=== PATIENT | female | born 1960 | race African-American/Black ===

== ENCOUNTER 2017-07-17 16:29 | Outpatient (CLI) | payer OTHER | END 2017-07-17 16:30 | disposition home or self-care (01) | LOC: BICRAD 16:29 | PROVIDERS: ATTEND Family Medicine | DX: R05 Cough (principal) | CPT/HCPCS: 71046 ==

== ENCOUNTER 2017-07-26 10:18 | Day surgery (SDC) | payer OTHER ==
[2017-07-26] MEDS ORDERED: diphenhydrAMINE 25 MG CAP PO SCH (12:15)
[2017-07-26] MEDS ORDERED: Acetaminophen 500 MG TAB PO SCH (12:15)
[2017-07-26] MEDS ORDERED: Sodium Chloride 0.9% 40 ML ONE (12:21)
[2017-07-26] MEDS ORDERED: Sodium Chloride 0.9% 50 ML ONE (12:30)
[2017-07-26 16:49] VITALS: BP 100/55; TEMP 98.7
== END 2017-07-26 17:56 | disposition home or self-care (01) ==
LOC: ONC/OP 10:18
PROVIDERS: ATTEND Internal Medicine Hematology & Oncology
PROC: 30233N1 Transfusion of Nonautologous Red Blood Cells into Peripheral Vein, Percutaneous Approach (ICD-10-PCS; principal; 2017-07-26)
DX: D64.9 Anemia, unspecified (principal); D69.6 Thrombocytopenia, unspecified
CPT/HCPCS: 36415; 36430; 71260; 74177; 80053; 82248; 83615; 84100; 84165; 84550; 85014; 85018; 86850; 86900; 86901; A4216; P9016

== ENCOUNTER 2017-07-26 10:28 | Outpatient (CLI) | payer OTHER ==
[2017-07-26] MEDS ORDERED: ISOVUE-370 76%-LOCM 1 ML ONE (15:04)
== END 2017-07-26 10:29 | disposition home or self-care (01) ==
LOC: BICCT 10:28
PROVIDERS: ATTEND Family Medicine
DX: R59.1 Generalized enlarged lymph nodes (principal); R16.1 Splenomegaly, not elsewhere classified
CPT/HCPCS: 71260; 74177

== ENCOUNTER 2017-07-31 09:14 | Day surgery (SDC) | payer OTHER ==
[2017-07-31] MEDS ORDERED: diphenhydrAMINE 25 MG CAP PO SCH (09:45)
[2017-07-31] MEDS ORDERED: Acetaminophen 500 MG TAB PO SCH (09:45)
[2017-07-31] MEDS ORDERED: Sodium Chloride 0.9% 20 ML ONE (10:18)
[2017-07-31 15:31] LABS: Hemoglobin 7.9 g/dL (12.0-16.0)
[2017-07-31 18:52] VITALS: BP 122/69; TEMP 98.1
== END 2017-07-31 19:13 | disposition home or self-care (01) ==
LOC: ONC/OP 09:14
PROVIDERS: ATTEND Internal Medicine Hematology & Oncology
PROC: 30233N1 Transfusion of Nonautologous Red Blood Cells into Peripheral Vein, Percutaneous Approach (ICD-10-PCS; principal; 2017-07-31)
DX: D64.9 Anemia, unspecified (principal); D69.6 Thrombocytopenia, unspecified
CPT/HCPCS: 36415; 36430; 85014; 85018; 86850; 86900; 86901; A4216; P9016

== ENCOUNTER 2017-08-03 09:21 | Day surgery (SDC) | payer OTHER ==
[2017-08-02 14:09] VITALS: BMI 26.9
[2017-08-03] MEDS ORDERED: Fentanyl 100 MCG/2 ML VIAL ONE ×2 (10:56→11:40)
[2017-08-03] MEDS ORDERED: Lidocaine 1% w/Epinephrine 1:200K 30 ML VIAL ONE (11:18)
[2017-08-03] MEDS ORDERED: Bacitracin Zinc Ointment 30 gm TUBE ONE (12:13)
[2017-08-03] MEDS ORDERED: Promethazine HCl 25 MG/ML VIAL ONE (12:48)
[2017-08-03] MEDS ORDERED: Lidocaine 1% PF 5 ML VIAL ONE (13:08)
[2017-08-03] MEDS ORDERED: PHENYLEPHRINE-NS 100 MCG/ML 10 ML SYRINGE ONE (13:08)
[2017-08-03] MEDS ORDERED: Ondansetron HCl/PF 4 MG/2 ML Vial ONE (13:08)
[2017-08-03] MEDS ORDERED: PROPOFOL 200 MG/20 ML VIAL ONE (13:08)
--- NOTE | 2017-08-04 07:22 | EKG ---
Test Reason : PREOP Blood Pressure : / mmHG Vent. Rate : 111 BPM Atrial Rate : 111 BPM P-R Int : 156 ms QRS Dur : 080 ms QT Int : 332 ms P-R-T Axes : 063 011 030 degrees QTc Int : 451 ms Sinus tachycardia Otherwise normal ECG No previous ECGs available Confirmed by DR. Erum LOVE ([id number]) on 08/04/2017 7:22:12 AM Referred By: MARK Confirmed By:DR. Erum LOVE
--- NOTE | 2017-08-04 10:42 | OP ---
PREOPERATIVE DIAGNOSES: 1. Multiple cervical lymphadenopathy. 2. Submental lymph nodes. POSTOPERATIVE DIAGNOSES: 1. Multiple cervical lymphadenopathy. 2. Submental lymph nodes. PROCEDURE PERFORMED: Excision of deep neck mass with complex closure measuring 4 cm. PROCEDURE IN DETAIL: The patient was identified, brought to the operating room and placed on the tab le in supine position. Endotracheal anesthesia was obtained. The patient was positioned for surgery . The neck was extended and prepped and draped. A large mass was palpated in the submental space an d a 4-cm incision was made over the mass. Dissection continued through the skin, subcutaneous tissue s, platysma, and down to the level of the anterior digastric muscles. Between the anterior digastric muscles, a large lymphoid appearing mass was removed with care while in a hemostatic fashion. Large blood vessels flowing to this mass were either cauterized or suture ligated. The specimen was sent in for fresh histologic evaluation and lymphoma studies. The wound was then closed in layers with Mo nocryl used to reapproximate the digastric muscles and the platysma and 6-0 Prolene for the skin. Th e patient was then awakened and taken to recovery room and remained in stable condition prior to disc harge home.
--- NOTE | 2017-09-14 08:56 | PQF ---
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 Check the appropriate box and include in your discharge summary. [ ] [ ] [ ] [ ] Please check this box if this does not apply to this patient [ ] Unable to determine [ ] Other diagnosis: Review the following information and exercise your independent professional judgment in responding to the clarification. Based upon the clinical findings, risk factors, and treatment, please clarify if you are treating one of the above probable or suspected diagnoses. Physician Signature: Date Time MTDD
== END 2017-08-03 14:10 | disposition home or self-care (01) ==
LOC: SDC 09:21
PROVIDERS: ATTEND Specialist
PROC: 07T00ZZ Resection of Head Lymphatic, Open Approach (ICD-10-PCS; principal; 2017-08-03)
DX: C91.10 Chronic lymphocytic leukemia of B-cell type not having achieved remission (principal); B00.1 Herpesviral vesicular dermatitis; H61.23 Impacted cerumen, bilateral; Z79.899 Other long term (current) drug therapy; Z88.7 Allergy status to serum and vaccine
CPT/HCPCS: 36415; 85014; 88184; 88305; 88307; 88331; 88333; 88334; 88341; 88342; 88360; 93005; 93010; J2001; J2405; J2550; J2704; J3010

== ENCOUNTER 2017-08-24 09:35 | Day surgery (SDC) | payer OTHER ==
[2017-08-24] MEDS ORDERED: Sodium Chloride 0.9% 30 ML ONE (10:44)
[2017-08-24] MEDS ORDERED: diphenhydrAMINE 25 MG CAP PO SCH (11:00)
[2017-08-24] MEDS ORDERED: Acetaminophen 500 MG TAB PO SCH (11:00)
[2017-08-24 14:14] VITALS: BP 93/50; TEMP 98.5
[2017-08-24 14:24] LABS: Hemoglobin 7.3 g/dL (12.0-16.0); Mean Corpuscular HGB CONC 33.8 g/dL (32.0-36.0); Mean Corpuscular Volume 97.6 fl (81.0-99.0); Mean Platelet Volume 6.8 fL (7.4-10.4); Platelet Count 29 thou/uL (130-400); White Blood Cell (WBC) Count 0.3 thou/uL (4.8-10.8)
[2017-08-24 14:50] LABS: Anisocytosis SLIGHT = 6-15 cells (100X) (0-5/hpf); MDiff Complete? YES; PLT Morphology Comment Appears Decreased
== END 2017-08-24 17:15 | disposition home or self-care (01) ==
LOC: ONC/OP 09:35
PROVIDERS: ATTEND Nurse Practitioner Acute Care
DX: D64.9 Anemia, unspecified (principal); D69.6 Thrombocytopenia, unspecified
CPT/HCPCS: 36430; 85025; 86850; 86900; 86901; A4216; P9016

== ENCOUNTER 2017-08-29 09:18 | Day surgery (SDC) | payer OTHER ==
[2017-08-29] MEDS ORDERED: Sodium Chloride 0.9% 30 ML ONE (09:31)
[2017-08-29] MEDS ORDERED: Acetaminophen 500 MG TAB PO SCH (10:00)
[2017-08-29] MEDS ORDERED: diphenhydrAMINE 25 MG CAP PO SCH (10:00)
[2017-08-29 14:10] LABS: Hemoglobin 7.4 g/dL (12.0-16.0)
[2017-08-29 17:35] VITALS: BP 98/60; TEMP 97.2
== END 2017-08-29 17:35 | disposition home or self-care (01) ==
LOC: ONC/OP 09:18
PROVIDERS: ATTEND Internal Medicine Hematology & Oncology
PROC: 30233N1 Transfusion of Nonautologous Red Blood Cells into Peripheral Vein, Percutaneous Approach (ICD-10-PCS; principal; 2017-08-29)
DX: D64.9 Anemia, unspecified (principal); D69.6 Thrombocytopenia, unspecified
CPT/HCPCS: 36430; 85014; 85018; 86850; 86900; 86901; A4216; P9016

== ENCOUNTER 2018-02-14 07:34 | Outpatient (CLI) | payer OTHER ==
--- NOTE | 2018-02-14 10:50 | CT ---
CT CHEST WITH IV CONTRAST CT ABDOMEN AND PELVIS WITH IV AND ORAL CONTRAST: History: Lymphoma, re-staging. Comparison: 07-26-17 FINDINGS: Lymph nodes within the axillae, upper anterior chest wall, and mediastinum are now of normal size. Mi ld atelectasis at the dependent portion of each lung. No pleural fluid or pneumothorax. The spleen now measures up to 11.5 cm. No enlarged lymph nodes are evident within the abdomen or pelv is. Cysts of the right kidney is unchanged in appearance. Urinary bladder is unremarkable. IMPRESSION: Complete interval CT resolution of the adenopathy and splenomegaly. No new abnormalities are evident. POS: [facility]
[2018-02-14] MEDS ORDERED: ISOVUE-370 76%-LOCM 1 ML ONE (13:30)
== END 2018-02-14 07:35 | disposition home or self-care (01) ==
LOC: BICCT 07:34
PROVIDERS: ATTEND Internal Medicine Hematology & Oncology
DX: C91.10 Chronic lymphocytic leukemia of B-cell type not having achieved remission (principal)
CPT/HCPCS: 71260; 74177